=== PATIENT | female | born 1985 | race Caucasian/White ===

== ENCOUNTER → 2017-10-29 | Outpatient (CLI) | payer OTHER ==
--- NOTE | 2017-10-29 21:21 | US ---
EXAM DESCRIPTION: Soft Tissue,Abdomen: ULTRASOUND. CLINICAL HISTORY: UNSPECIFIED ABDOMINAL PAIN, subcutaneous nodule lesion of unknown. Left of midline below the umbilicus. Total for 3 weeks. Tender after exercise. Patient feels like it is getting smaller. Previous surgeries. Most recent surgery in 2013. COMPARISON: None Available. TECHNIQUE: Transcutaneous scanning: Kincaid-scale and Doppler modes. FINDINGS: Hypoechoic nodule in the subcutaneous tissue corresponding to palpable mass. Circumscribed measuring 1.0 x 0.8 x 0.7 cm with echogenic hilum. Nonvascular. Most likely a lymph node. No other distinct solid mass or cyst. No parenchymal edema or large calcifications. No abnormal vascularity. IMPRESSION: Probable mass corresponds to 1 cm lymph node. No other ultrasound findings. Electronically signed by: Jose Lincoln MD 10/29/2017 9:19 PM CDT
== END ==
LOC: US 08:17
PROVIDERS: ATTEND Nurse Practitioner Family
DX: R10.9 Unspecified abdominal pain (principal)